=== PATIENT | male | born 1960 | race Caucasian/White ===

== ENCOUNTER 2021-02-14 03:11 | Emergency (ER) | payer BC, MEDICARE ==
[~2021-02-14] VITALS: Ht 188 cm; Wt 92.7 kg
[2021-02-14 03:16] VITALS: BP 152/74
== END 2021-02-14 04:37 | disposition left against medical advice (07) ==
LOC: ER 03:12
DX: S01.81XA Laceration without foreign body of other part of head, initial encounter (principal); S00.12XA Contusion of left eyelid and periocular area, initial encounter; S00.11XA Contusion of right eyelid and periocular area, initial encounter; R26.0 Ataxic gait; R42 Dizziness and giddiness; W11.XXXA Fall on and from ladder, initial encounter; Y93.89 Activity, other specified; Y92.89 Other specified places as the place of occurrence of the external cause; Y99.8 Other external cause status; Z87.891 Personal history of nicotine dependence
CPT/HCPCS: 70450; 72125; 99284